=== PATIENT | female | born 1990 | race Hispanic/Latino ===

== ENCOUNTER 2024-10-26 13:41 | Emergency (ER) | payer MEDICAID ==
[~2024-10-26] VITALS: Ht 162.6 cm; Wt 90.7 kg
[2024-10-26] MEDS: acetaMINOPHEN 500 MG TABLET PO ONE (14:13)
[2024-10-26 14:30] LABS: BASOPHILS # (AUTO) 0.05 K/uL (0.00-0.20); BASOPHILS % (AUTO) 0.5 % (0.0-5.0); EOSINOPHILS # (AUTO) 0.21 K/uL (0.00-0.70); EOSINOPHILS % (AUTO) 2.2 % (0.0-8.0); HEMATOCRIT 40.5 % (36-48); IMMATURE GRANULOCYTE ABSOLUTE 0.06 K/uL (0-1); LYMPHOCYTES # (AUTO) 0.9 K/uL (1.0-4.8); LYMPHOCYTES % (AUTO) 9.7 % (21.0-51.0); MEAN CORPUSCULAR HEMOGLOBIN 24.8 pg (27.0-33.0); MEAN CORPUSCULAR HGB CONC 32.3 g/dL (32.0-36.0); MEAN CORPUSCULAR VOLUME 76.7 fL (79-99); MONOCYTES # (AUTO) 0.5 K/uL (0.1-1.0); MONOCYTES % (AUTO) 4.7 % (3.0-13.0); NEUTROPHILS # (AUTO) 7.8 K/uL (1.8-7.7); NEUTROPHILS % (AUTO) 82.3 % (40.0-77.0); PLATELET COUNT (AUTO) 277 K/uL (130-400); RED BLOOD CELL COUNT(AUTO) 5.28 MIL/uL (4.00-5.50); RED CELL DISTRIBUTION WIDTH 23.9 % (11.0-15.5); WHITE BLOOD COUNT (AUTO) 9.5 K/uL (4.8-10.8)
[2024-10-26 14:34] LABS: CREATININE 0.7 mg/dL (0.5-1.0); POTASSIUM 3.8 mmol/L (3.5-5.1)
[2024-10-26 14:35] LABS: APPEARANCE,URINE CLOUDY (CLEAR); BILIRUBIN,URINE NEGATIVE (NEGATIVE); COLOR,URINE YELLOW (YELLOW); GLUCOSE, URINE (UA) NEGATIVE (NEGATIVE); KETONES,URINE 5 mg/dL (NEGATIVE); LEUKOCYTE ESTERASE ,URINE 500 Leu/uL (NEGATIVE); NITRATE,URINE NEGATIVE (NEGATIVE); OCCULT BLOOD,URINE NEGATIVE (NEGATIVE); PH,URINE 6.5 (5.0-8.0); PROTEIN,URINE 30 mg/dL (NEGATIVE); UROBILINOGEN,URINE 0.2 mg/dL (0.2-1.0)
[2024-10-26 14:37] LABS: RAPID GROUP A STREP negative (NEGATIVE)
[2024-10-26 14:39] LABS: BACTERIA,URINE FEW /HPF (None Seen); MUCUS,URINE FEW LPF (None Seen); OTHER CASTS, URINE 4 /LPF (None Seen); SQUAMOUS EPITHELIAL CELL,UR FEW /HPF (0-2); YEAST,URINE BUDDING FEW /HPF (None Seen)
[2024-10-26 14:48] LABS: INFLUENZA TYPE A Negative For Type A (NEGATIVE); INFLUENZA TYPE B Negative For Type B (NEGATIVE)
[2024-10-26 14:54] LABS: COVID19 (SARS ANTIGEN RAPID) PRESUMPTIVE NEGATIVE (NEGATIVE)
[2024-10-26] MEDS ORDERED: CEPH500T PO (15:23)
--- NOTE | 2024-10-26 15:24 | ERN ---
General Chief Complaint: OB<20 weeks gest. Stated Complaint: CRAMPING, BACK PAIN , 8 WEEKS Time Seen by MD: 13:48 Time Seen by Midlevel: 13:48 Source: patient History of Present Illness Initial Comments 34 y/o female presents to the ED due to abdominal cramping onset yesterday. Reports back pain, weakness, sore throat, dysuria but denies nausea, vomiting, fever or further associated symptoms. Pt states she was seen in [place] 2 months and told she was anemic with Hgb of 6 but no transfusion was performed. Patient reports to be two months , . Denies significant PMHx Allergies: Coded Allergies: No Known Allergies (Unverified Allergy, Unknown, 10/26/24) Home Meds Active Scripts Cephalexin (Cephalexin) 500 Mg Tablet, 1 TAB PO BID for 7 Days, #14 TAB 0 Refills Prov:SARAVANAN CHAVSI 10/26/24 Past Medical History Past Medical History: Anemia Past Surgical History: None Female( History) LMP: Aug 26, 2024 : 3 Para: 2 ROS Dictation Constitutional: Positive for generalized weakness Negative for fever,chills, and weight loss Eyes: Negative for injury, pain,redness, and discharge ENT: Positive for sore throat Negative for injury,pain or swelling Cardiovascular: Negative for chest pain, palpitations, and edema Respiratory: Negative for shortness of breath, cough, and wheezing, Abdomen/GI: Positive for lower abdominal cramping Negative for nausea, vomiting, diarrhea, and constipation Back: Positive for back pain Negative for injury : Positive for dysuria Negative for bleeding or discharge MS/Extremity: Negative for injury and deformity Skin: Negative for rash, and discoloration Neuro: Negative for headache, weakness, numbness, tingling, and seizure Psych: Negative for suicide ideation, homicidal ideation, and hallucinations Physical Exam Physical Exam Dictation General: awake, alert, no acute distress Head/Face: Normocephalic, atraumatic Eyes: PERRL, EOMI, normal conjunctiva ENT: oral cavity clear, oral mucosa moist Neck: Supple, normal range of motion Cardiovascular: RRR, normal S1/S2 Respiratory: CTAB, no respiratory distress, no rales or wheezes Abdomen: Soft, non-tender, non-distended, no guarding or rebound. Skin: Warm, dry, normal turgor, no rash MS/Extremity: Pulses equal, no cyanosis, neurovascular intact, FROM Neuro: COAx4, GCS 15, strength 5/5, CN 2-12 intact, normal cerebellar exam, normal gait Psych: Normal behavior, mood, and affect normal Results Laboratory and Microbiology Lab and Micro Result Laboratory Tests Test 10/26/24 13:54 10/26/24 14:15 Urine Color YELLOW (YELLOW) Urine Appearance CLOUDY (CLEAR) H Urine pH 6.5 (5.0-8.0) Urine Specific [place] 1.032 (1.001-1.031) Urine Protein 30 mg/dL (NEGATIVE) H Urine Glucose (UA) NEGATIVE mg/dL (NEGATIVE) Urine Ketones 5 mg/dL (NEGATIVE) H Urine Occult Blood NEGATIVE (NEGATIVE) Urine Nitrate NEGATIVE (NEGATIVE) Urine Bilirubin NEGATIVE mg/dL (NEGATIVE) Urine Urobilinogen 0.2 mg/dL (0.2-1.0) Urine Leukocyte Esterase 500 Kim/uL (NEGATIVE) H Urine RBC 6-10 /HPF (0-1) H Urine WBC 11-25 /HPF (0-1) H Urine Squamous Epithelial Cells FEW /HPF (0-2) Urine Bacteria FEW /HPF (None Seen) Urine Other Casts 4 /LPF (None Seen) Urine Yeast FEW /HPF (None Seen) White Blood Count 9.5 K/uL (4.8-10.8) Red Blood Count 5.28 MIL/uL (4.00-5.50) Hemoglobin 13.1 g/dL (12.0-16.0) Hematocrit 40.5 % (36-48) Mean Corpuscular Volume 76.7 fL (79-99) L Mean Corpuscular Hemoglobin 24.8 pg (27.0-33.0) L Mean Corpuscular Hemoglobin Concent 32.3 g/dL (32.0-36.0) Red Cell Distribution Width 23.9 % (11.0-15.5) H Platelet Count 277 K/uL (130-400) Mean Platelet Volume 10.6 fL (7.5-10.5) H Immature Granulocyte % (Auto) 0.6 % (0-1) Neutrophils (%) (Auto) 82.3 % (40.0-77.0) H Lymphocytes (%) (Auto) 9.7 % (21.0-51.0) L Monocytes (%) (Auto) 4.7 % (3.0-13.0) Eosinophils (%) (Auto) 2.2 % (0.0-8.0) Basophils (%) (Auto) 0.5 % (0.0-5.0) Neutrophils # (Auto) 7.8 K/uL (1.8-7.7) H Lymphocytes # (Auto) 0.9 K/uL (1.0-4.8) L Monocytes # (Auto) 0.5 K/uL (0.1-1.0) Eosinophils # (Auto) 0.21 K/uL (0.00-0.70) Basophils # (Auto) 0.05 K/uL (0.00-0.20) Absolute Immature Granulocyte (auto 0.06 K/uL (0-1) Nucleated Red Blood Cells 0.0 % (0.0-0.19) White Cell Morphology Comment See comments Red Blood Cell Morphology See comments Sodium Level 136 mmol/L (136-145) Potassium Level 3.8 mmol/L (3.5-5.1) Chloride Level 100 mmol/L (101-111) L Carbon Dioxide Level 25 mmol/L (21-32) Blood Urea Nitrogen 11 mg/dL (7-18) Creatinine 0.7 mg/dL (0.5-1.0) Glomerular Filtration Rate Calc 116 mL/min (>90) Random Glucose 103 mg/dL (70-105) Total Calcium 9.5 mg/dL (8.5-10.1) Troponin I High Sensitivity 8 ng/L (4-50) Human Chorionic Gonadotropin, Quant 16105 mIU/mL (0-5) H Influenza Type A Antigen Negative For Type A Influenza Type B Antigen Negative For Type B SARS-CoV-2 Antigen (Rapid) PRESUMPTIVE NEGATIVE Group A Streptococcus Rapid negative (NEGATIVE) Labs Reviewed?: Yes EKG/XRAY/US/CT/MRI Ultrasound Comment REASON: abdominal cramping ORDERING PHYSICIAN: SARAVANAN CHAVIS PROCEDURE: OB <14 - US OB <14 WEEKS Exam Type: US OB <14 WEEKS Clinical Information: abdominal cramping Comparison: None FINDINGS: Single live intrauterine seen. No perigestational sac hematoma identified. CRL measures 1.60 cm , corresponds to 8 weeks 0 days. cardiac activity and heart rate is 160 beats per minute. The uterus is anteverted with normal shape. The myometrium is homogeneous and there is no evidence of focal or diffuse lesions. Right ovary obscured. Left ovary unremarkable except for a follicle or corpus luteum cyst No adnexal masses. No free fluid or collections. Urinary bladder appears normal. IMPRESSION: 1. Single live intrauterine gestation with parameters as noted above. DICTATED BY: JANINE DEL CASTILLO MD DATE: 10/26/24 152 MDM MDM: Differential diagnosis: UTI, viral illness, early . Rationale: 34 y/o female presents to the ED due to abdominal cramping onset yesterday. Reports back pain, weakness, sore throat, dysuria but denies nausea, vomiting, fever or further associated symptoms. Pt states she was seen in [place] 2 months and told she was anemic with Hgb of 6 but no transfusion was performed. Patient reports to be two months , . Denies significant PMHx Labs obtained hemoglobin within normal limits, CBC nonspecific, hCG [id number], serology negative for influenza, SARs, strep. UA indicates a urinary tract infection with 500 leukocyte esterase and WBCs. Ultrasound shows a single intrauterine measuring eight weeks gestation, heart rate 160 bpm. Patient received antibiotics in the ED and prescribed antibiotics for outpatient treatment. She was educated on findings and diagnosis. Advised to follow up with PCP. Return to the emergency department if any worsening s ymptoms. Patient verbalized understanding. Patient stable for discharge. There are no social concerns with this patient. I independently interpreted the test that were performed, results were reviewed by me and considered findings on radiology if ordered. Medical management and examination interpretation discussions were had by me with other qualified healthcare professionals as indicated for the patient's care. ED Course Orders Procedure Category Date Status Time Cbc With Differential LAB 10/26/24 Complete 13:57 Basic Metabolic Panel LAB 10/26/24 Complete 13:57 Urinalysis LAB 10/26/24 Complete W/Microscopic 13:57 Us Ob <14 Weeks US 10/26/24 Resulted 13:57 Rapid (Group A Strep) LAB 10/26/24 Complete 13:57 Influenza Type A & B, LAB 10/26/24 Complete Rapid 13:57 Covid19 (Sars Antigen LAB 10/26/24 Complete Rapid) 13:57 Hcg,Quantitative LAB 10/26/24 Complete 13:57 Acetaminophen 500mg PHA 10/26/24 Complete Tab (Tylenol 500mg T 14:00 Troponin I High LAB 10/26/24 Complete Sensitivity 14:11 12 Lead Ekg Tracing- EKG 10/26/24 Logged Technical 14:11 Culture Urine THERESE 10/26/24 In Process 14:36 Ceftriaxone 1g Vial PHA 10/26/24 Complete (Rocephine 1g Inj) 15:30 Current Medications Medications (Trade) Dose Ordered Sig/Sharmila Route PRN Reason Start Time Stop Time Status Last Admin Dose Admin Acetaminophen (TYLenol 500MG TAB) 1,000 mg ONCE ONCE PO 10/26/24 14:00 10/26/24 14:02 DC 10/26/24 14:13 Ceftriaxone Sodium (ROCEphine 1G INJ) 1 gm ONCE ONCE IVPB 10/26/24 15:30 10/26/24 15:31 DC 10/26/24 15:41 Vital Signs Date Time Temp Pulse Resp B/P (MAP) Pulse Ox O2 Delivery O2 Flow Rate FiO2 10/26/24 15:34 98.2 100 18 137/89 98 Room Air* 0 21 10/26/24 13:43 98.2 134 20 145/88 98 Room Air 0 DX & DISP Disposition: Discharge Departure Impression: Primary Impression: UTI (urinary tract infection) Condition: Stable Scripts Cephalexin (Cephalexin) 500 Mg Tablet 1 TAB PO BID for 7 Days, #14 TAB 0 Refills Prov: SARAVANAN CHAVIS 10/26/24 Additional Instructions: Discharge home. Rest. Follow up with primary care DrArpita in 24 hours. Return to the ER for any acute changes or worsening symptoms. If any medications were prescribed take as directed. Okay to continue home medications unless otherwise discussed during your visit in the emergency room today. Patient was also advised to follow-up with primary care physician in 1 to 2 days for continued monitoring. Referrals: SELF,REFERRAL (PCP) I performed the substantive portion of the visit. I have reviewed and personally made and approve the management plan that is documented in the notes by myself or the NEEMA. I acknowledge full responsibility for the patient's management plan. SARAVANAN CHAVIS October 26, 2024 15:24
--- NOTE | 2024-10-26 15:30 | HMCIMG ---
Exam Type: US OB <14 WEEKS Clinical Information: abdominal cramping Comparison: None FINDINGS: Single live intrauterine seen. No perigestational sac hematoma identified. CRL measures 1.60 cm , corresponds to 8 weeks 0 days. cardiac activity and heart rate is 160 beats per minute. The uterus is anteverted with normal shape. The myometrium is homogeneous and there is no evidence of focal or diffuse lesions. Right ovary obscured. Left ovary unremarkable except for a follicle or corpus luteum cyst No adnexal masses. No free fluid or collections. Urinary bladder appears normal. IMPRESSION: 1. Single live intrauterine gestation with parameters as noted above.
[2024-10-26 15:34] VITALS: BP 137/89; PULSE 100; RESP 18; TEMP 98.2; O2SAT 98
[2024-10-26] MEDS: cefTRIAXone 1G VIAL IVPB ONE (15:41)
--- NOTE | 2024-10-27 08:33 | EKG ---
[facility] Test Date: 2024-10-26 Test Time: 15:04:12 Pat Name: SAM BRANDT Department: ED Room: Gender: F Ultrasound Manager: [id number] : 1990 Requested By: SARAVANAN CHAVIS Order Number: [id number] Reading MD: Aida Navarrete Measurements Intervals [place] Rate: 96 P: 53 [place]: 121 QRS: 7 QRSD: 74 T: 23 QT: 332 QTc: 419 Interpretive Statements Sinus rhythm No previous ECG available for comparison Electronically Signed On 10-28-2024 18:38:50 CDT by Aida Navarrete Please click the below link to view image of tracing.
== END 2024-10-26 16:04 | disposition home or self-care (01) ==
LOC: EDH 13:41
DX: O23.41 Unspecified infection of urinary tract in pregnancy, first trimester (principal); N39.0 Urinary tract infection, site not specified; O26.891 Other specified pregnancy related conditions, first trimester; R10.2 Pelvic and perineal pain; Z20.822 Contact with and (suspected) exposure to COVID-19; Z3A.08 8 weeks gestation of pregnancy
CPT/HCPCS: 99285; 96365; 76801; 87426; 84484; 80048; 84702; 85025; 87086; 87880; 87804 ×2; 81001; 36415; 93005; J0696